=== PATIENT | female | born 1985 | race African-American/Black ===

== ENCOUNTER 2019-09-11 08:57 | Emergency (ER) | payer MEDICAID ==
[~2019-09-11] VITALS: Ht 167.6 cm; Wt 100.0 kg
[2019-09-11 09:37] VITALS: BP 107/56
[2019-09-11 10:38] LABS: CLARITY URINE CLOUDY (CLEAR); COLOR URINE YELLOW (YELLOW); KETONES URINE NEGATIVE (NEGATIVE); LEUKOCYTE ESTERASE URINE 3+ (NEGATIVE); NITRITE URINE NEGATIVE (NEGATIVE); OCCULT BLOOD URINE 2+ (NEGATIVE); PH URINE 5.5 (4.5-8.0); PROTEIN URINE NEGATIVE (NEGATIVE); SPECIFIC GRAVITY URINE 1.021 (1.005-1.030); UROBILINOGEN URINE 0.2 E.U./dL (0.2-1.0)
[2019-09-11] MEDS ORDERED: LIDOCAINE HCL 1% 20ML VIAL (Pyxis) INJ INFIL ONE (11:00)
[2019-09-11] MEDS ORDERED: CEFTRIAXONE SODIUM 250 MG/VIAL IM ONE (11:00)
[2019-09-11] MEDS ORDERED: METRONIDAZOLE 500MG TABLET PO ONE (11:00)
[2019-09-11] MEDS ORDERED: AZITHROMYCIN 500 MG TABLET PO ONE (11:00)
[2019-09-15 04:10] LABS: CHLAMYDIA TRACHOMATIS NAA Negative (Negative); NEISSERIA GONORRHOEAE NAA Negative (Negative)
== END 2019-09-11 11:28 | disposition home or self-care (01) ==
LOC: ER 08:57
DX: A59.9 Trichomoniasis, unspecified (principal); N39.0 Urinary tract infection, site not specified; J45.909 Unspecified asthma, uncomplicated
CPT/HCPCS: 81003; 81025; 87086; 87210; 87491; 87591; 96372; 99283; J0696; J3490

== ENCOUNTER 2019-11-23 07:03 | Emergency (ER) | payer MEDICAID ==
[~2019-11-23] VITALS: Ht 167.6 cm; Wt 108.0 kg
[2019-11-23] MEDS ORDERED: METHYLPREDNISOLONE SOD SUCC 125 MG/2 ML VIAL IM STA (09:31)
[2019-11-23] MEDS ORDERED: ALBUTEROL (0.083%) 2.5MG/3ML NEB HHN STA (09:31)
[2019-11-23] MEDS ORDERED: IPRATROPIUM BROMIDE (0.02%) 0.5MG/2.5ML NEB HHN STA (09:31)
[2019-11-23 10:55] VITALS: BP 130/55
== END 2019-11-23 10:55 | disposition home or self-care (01) ==
LOC: ER 07:03
DX: J45.901 Unspecified asthma with (acute) exacerbation (principal)
CPT/HCPCS: 94640; 96372; 99283; J2930; J7611; Z7610

== ENCOUNTER 2019-12-20 08:57 | Emergency (ER) | payer MEDICAID ==
[~2019-12-20] VITALS: Ht 167.6 cm; Wt 109.0 kg
[2019-12-20 11:12] VITALS: BP 108/45
== END 2019-12-20 12:02 | disposition home or self-care (01) ==
LOC: ER 10:22
DX: H92.03 Otalgia, bilateral (principal); H61.23 Impacted cerumen, bilateral; J45.909 Unspecified asthma, uncomplicated
CPT/HCPCS: 99282

== ENCOUNTER 2020-12-08 19:57 | Emergency (ER) | payer MEDICAID ==
[~2020-12-08] VITALS: Ht 167.6 cm; Wt 117.2 kg
[2020-12-08 20:11] VITALS: BP 103/74
[2020-12-08] MEDS ORDERED: IBUPROFEN 600MG TABLET PO ONE (21:15)
== END 2020-12-08 22:04 | disposition home or self-care (01) ==
LOC: ER 19:57
DX: H92.03 Otalgia, bilateral (principal); H91.93 Unspecified hearing loss, bilateral
CPT/HCPCS: 99282

== ENCOUNTER 2021-11-16 19:17 | Emergency (ER) | payer MEDICAID ==
[~2021-11-16] VITALS: Ht 165.1 cm; Wt 100.0 kg
[2021-11-16] MEDS ORDERED: IPRATROPIUM BROMIDE (0.02%) 0.5MG/2.5ML NEB HHN STA (20:22)
[2021-11-16] MEDS ORDERED: ALBUTEROL (0.083%) 2.5MG/3ML NEB HHN SCH (20:30)
[2021-11-16] MEDS ORDERED: ALBU2.5V13 NEB (21:08)
[2021-11-16] MEDS ORDERED: ALBU6.7H15 INH (21:08)
[2021-11-16 21:25] VITALS: BP 119/53
== END 2021-11-16 21:29 | disposition home or self-care (01) ==
LOC: ER 19:17
DX: J45.901 Unspecified asthma with (acute) exacerbation (principal)
CPT/HCPCS: 93005; 94640; 99283; Z7610

== ENCOUNTER 2022-02-14 11:25 | Emergency (ER) | payer MEDICAID ==
[~2022-02-14] VITALS: Ht 167.6 cm; Wt 103.0 kg
[~2022-02-14 11:25] MED LIST: ALBU2.5V13 NEB; ALBU6.7H15 INH
[2022-02-14 11:32] VITALS: BP 159/81
[2022-02-14 13:01] LABS: CLARITY URINE CLEAR (CLEAR); COLOR URINE YELLOW (YELLOW); KETONES URINE NEGATIVE (NEGATIVE); LEUKOCYTE ESTERASE URINE NEGATIVE (NEGATIVE); NITRITE URINE NEGATIVE (NEGATIVE); OCCULT BLOOD URINE 1+ (NEGATIVE); PH URINE 5.5 (4.5-8.0); PROTEIN URINE NEGATIVE (NEGATIVE); UROBILINOGEN URINE 0.2 E.U./dL (0.2-1.0)
[2022-02-14] MEDS ORDERED: DIF15 PO (13:26)
[2022-02-14] MEDS ORDERED: METR-167 PO (13:26)
== END 2022-02-14 13:43 | disposition home or self-care (01) ==
LOC: ER 11:25
DX: N76.0 Acute vaginitis (principal); J45.909 Unspecified asthma, uncomplicated
CPT/HCPCS: 81003; 81025; 87210; 99283; Z7610

== ENCOUNTER 2022-02-17 19:40 | Emergency (ER) | payer MEDICAID, OTHER ==
[~2022-02-17] VITALS: Ht 167.6 cm; Wt 103.0 kg
[~2022-02-17 19:40] MED LIST changes: +DIF15 PO; +METR-167 PO
[2022-02-17 19:46] VITALS: BP 118/71
[2022-02-17] MEDS ORDERED: EMTR1TAB11 MT ×3 (22:50→23:08)
[2022-02-17] MEDS ORDERED: RALT400T MT ×3 (22:50→23:08)
[2022-02-18 00:04] LABS: HEPATITIS B SURFACE ANTIGEN NEGATIVE
[2022-02-20 05:09] LABS: HIV SCREEN 4G Non Reactive (Non Reactive)
== END 2022-02-17 23:48 | disposition home or self-care (01) ==
LOC: ER 19:40
DX: Z20.6 Contact with and (suspected) exposure to human immunodeficiency virus [HIV] (principal); J45.909 Unspecified asthma, uncomplicated
CPT/HCPCS: 36415; 86705; 86709; 86803; 87340; 87389; 99283

== ENCOUNTER 2024-11-09 16:26 | Emergency (ER) | payer MEDICAID, OTHER ==
[~2024-11-09] VITALS: Ht 167.6 cm; Wt 101.0 kg
[~2024-11-09 16:26] MED LIST changes: +EMTR1TAB11 MT; +RALT400T MT
[2024-11-09 16:29] VITALS: O2SAT 98
[2024-11-09 16:45] VITALS: BP 104/64; PULSE 96; RESP 16; TEMP 98.6; O2SAT 99
[2024-11-09] MEDS ORDERED: P-EP-91 MT (19:18)
[2024-11-09] MEDS ORDERED: FLUT9.9S BOTHNSTRLS (19:18)
[2024-11-09] MEDS ORDERED: BECL10.62 INH ×2 (20:26→20:51)
[2024-11-09] MEDS ORDERED: ALBU90AE INH ×2 (20:26→20:51)
[2024-11-09] MEDS ORDERED: ALBU18HF2 IH (21:04)
== END 2024-11-09 20:04 | disposition home or self-care (01) ==
LOC: ER 16:26
DX: H69.90 Unspecified Eustachian tube disorder, unspecified ear (principal); J45.909 Unspecified asthma, uncomplicated; Z76.0 Encounter for issue of repeat prescription
CPT/HCPCS: 99281

== ENCOUNTER 2025-10-19 09:22 | Emergency (ER) | payer MEDICAID ==
[~2025-10-19] VITALS: Ht 172.7 cm; Wt 90.0 kg
[~2025-10-19 09:22] MED LIST changes: +ALBU18HF2 IH; +ALBU90AE INH; +BECL10.62 INH; -EMTR1TAB11 MT; +EMTR1TAB20 MT; +FLUT9.9S BOTHNSTRLS; +P-EP-91 MT
[2025-10-19] MEDS: ALBUTEROL (0.083%) 2.5MG/3ML NEB HHN SCH (10:56)
[2025-10-19] MEDS: IPRATROPIUM BROMIDE (0.02%) 0.5MG/2.5ML NEB HHN SCH (10:56)
[2025-10-19] MEDS: DIPHENHYDRAMINE 50MG/ML VIAL IV ONE (11:00)
[2025-10-19] MEDS: FAMOTIDINE 20MG/2ML VIAL IV ONE (11:00)
[2025-10-19] MEDS: METHYLPREDNISOLONE SOD SUCC 125MG/2ML (ACT-O-VIAL) IV ONE (11:00)
[2025-10-19 11:01] VITALS: PULSE 89; RESP 22; O2SAT 98
[2025-10-19] MEDS: EPINEPHRINE 1:1000 1 MG/ML AMP IM ONE (12:46)
[2025-10-19] MEDS ORDERED: EPIN0.3P3 IM (17:08)
[2025-10-19] MEDS ORDERED: ALBU2SYR24 MT (17:08)
[2025-10-19] MEDS ORDERED: BECL10.6 INH (17:08)
[2025-10-19] MEDS ORDERED: LORA10TA7 MT (17:08)
[2025-10-19] MEDS ORDERED: P20 MT (17:10)
[2025-10-19 17:43] VITALS: BP 94/65; PULSE 95; RESP 16; TEMP 36.9; O2SAT 100
== END 2025-10-19 17:43 | disposition home or self-care (01) ==
LOC: ER 09:22
DX: T78.40XA Allergy, unspecified, initial encounter (principal); J45.909 Unspecified asthma, uncomplicated; X58.XXXA Exposure to other specified factors, initial encounter; Y93.89 Activity, other specified; Y92.89 Other specified places as the place of occurrence of the external cause; Y99.8 Other external cause status
CPT/HCPCS: 94644; 96372; 96374; 96375; 99285; J1200; J3490; J1308; J2919; Z7610 ×3; 94640; 94664